=== PATIENT | female | born 1955 | race Two or more races ===

== ENCOUNTER 2017-10-09 10:41 | Observation (INO) | payer OTHER ==
[2017-10-09] MEDS ORDERED: NITROGLYCERIN (SL) 0.4 MG TAB SL ×2 (11:30→16:00)
[2017-10-09] MEDS: ASPIRIN 81 MG TAB PO (11:32)
[2017-10-09] MEDS: NITROGLYCERIN 2% 1 GM OINT PKT TD (11:33)
[2017-10-09 11:54] LABS: ADD MAN DIFF? NO
[2017-10-09 12:11] LABS: BASOPHIL # 0.1 10^3/ul (0.0-0.1); BASOPHILS % 0.5 % (0.0-2.0); EOSINOPHILS # 0.3 10^3/ul (0.0-0.5); EOSINOPHILS % 3.1 % (0.0-7.0); HEMATOCRIT 41.3 % (37.0-47.0); HEMOGLOBIN 13.2 g/dl (12.0-16.0); LYMPHOCYTES # 3.2 10^3/ul (0.8-2.9); MEAN CORPUSCULAR HEMOGLOBIN 28.2 pg (29.0-33.0); MEAN CORPUSCULAR VOLUME 88.2 fl (82.0-101.0); MEAN PLATELET VOLUME 10.5 fl (7.4-10.4); MONOCYTE # 0.5 10^3/ul (0.3-0.9); MONOCYTES % 4.9 % (0.0-11.0); NEUTROPHIL # 6.3 10^3/ul (1.6-7.5); NEUTROPHILS % 60.1 % (39.0-77.0); PLATELET COUNT 301 10^3/UL (140-415); RED BLOOD COUNT 4.68 10^6/ul (4.20-5.40); RED CELL DISTRIBUTION WIDTH 13.4 % (11.5-14.5)
[2017-10-09 12:11] LABS: WHITE BLOOD COUNT 10.4 10^3/ul (4.8-10.8)
[2017-10-09 12:21] LABS: ANION GAP 16 (8-16); BLOOD UREA NITROGEN 13 mg/dl (7-20); CALCIUM 9.6 mg/dl (8.4-10.2); CARBON DIOXIDE 32 mmol/L (21-31); CHLORIDE 99 mmol/L (97-110); CREATININE 0.78 mg/dl (0.44-1.00); GLUCOSE 151 mg/dl (70-220); POTASSIUM 3.8 mmol/L (3.5-5.1); SODIUM 143 mmol/L (135-144)
[2017-10-09 12:35] LABS: TROPONIN-I < 0.012 ng/ml (0.00-0.12)
[2017-10-09] MEDS ORDERED: ACETAMINOPHEN 325 MG TAB PO ×2 (14:30→16:00)
[2017-10-09] MEDS ORDERED: ONDANSETRON 4 MG INJ IV ×2 (14:30→16:00)
[2017-10-09] MEDS ORDERED: DOCUSATE SODIUM 100 MG CAP PO (16:00)
[2017-10-09] MEDS ORDERED: NACL 0.9% 3 ML SYG IV (16:00)
[2017-10-09] MEDS ORDERED: morphine 2 MG INJ IV (16:00)
[2017-10-09] MEDS ORDERED: DICYCLOMINE 10 MG CAP PO (16:00)
[2017-10-09] MEDS ORDERED: HYDROCODONE/APAP (5/325) TAB PO (16:00)
[2017-10-09] MEDS ORDERED: GLUCOSE GEL 15 GRAM TUBE BUCCAL (16:30)
[2017-10-09] MEDS ORDERED: GLUCAGON 1 MG INJ IM (16:30)
[2017-10-09] MEDS ORDERED: DEXTROSE 50% 50 ML SYRINGE IV ×2 (16:30)
[2017-10-09] MEDS ORDERED: GLUCOSE GEL 15 GRAM TUBE PO ×2 (16:30)
[2017-10-09] MEDS: D5W-0.45 NACL + KCL 20 MEQ 1,000 ML IV (16:34)
[2017-10-09] MEDS: INSULIN ASPART [NOVOLOG] 3 ML PEN SC ×2 (16:48→21:00)
[2017-10-09 18:02] LABS: CREATINE KINASE 52 IU/L (23-200)
[2017-10-09 18:15] LABS: CK INDEX 2.4; CK-MB 1.23 ng/ml (0.0-2.4); TROPONIN-I 0.053 ng/ml (0.00-0.12)
[2017-10-09] MEDS: ATORVASTATIN 20 MG TAB PO (21:31)
[2017-10-09] MEDS: INSULIN GLARGINE [LANtus] 3 ML PEN SC (21:33)
[2017-10-09 23:51] LABS: CREATINE KINASE 43 IU/L (23-200)
[2017-10-10 00:04] LABS: CK INDEX 2.3; CK-MB 1.01 ng/ml (0.0-2.4); TROPONIN-I 0.041 ng/ml (0.00-0.12)
[2017-10-10] MEDS: INSULIN ASPART [NOVOLOG] 3 ML PEN SC ×5 (01:00→17:00)
[2017-10-10] MEDS: ACCU-CHEK XX (01:51)
[2017-10-10] MEDS: PANTOPRAZOLE (EC) 40 MG TAB PO (05:48)
[2017-10-10] MEDS: D5W-0.45 NACL + KCL 20 MEQ 1,000 ML IV (05:49)
[2017-10-10 06:46] LABS: ADD MAN DIFF? NO
[2017-10-10 06:50] LABS: BASOPHIL # 0.1 10^3/ul (0.0-0.1); BASOPHILS % 0.5 % (0.0-2.0); EOSINOPHILS # 0.4 10^3/ul (0.0-0.5); EOSINOPHILS % 3.3 % (0.0-7.0); HEMATOCRIT 38.1 % (37.0-47.0); LYMPHOCYTES # 2.9 10^3/ul (0.8-2.9); MEAN CORPUSCULAR HEMOGLOBIN 28.1 pg (29.0-33.0); MEAN CORPUSCULAR HGB CONC 31.5 g/dl (32.0-37.0); MEAN CORPUSCULAR VOLUME 89.2 fl (82.0-101.0); MEAN PLATELET VOLUME 10.4 fl (7.4-10.4); MONOCYTE # 0.6 10^3/ul (0.3-0.9); MONOCYTES % 6.1 % (0.0-11.0); NEUTROPHIL # 6.5 10^3/ul (1.6-7.5); NEUTROPHILS % 61.7 % (39.0-77.0); PLATELET COUNT 270 10^3/UL (140-415); RED BLOOD COUNT 4.27 10^6/ul (4.20-5.40); RED CELL DISTRIBUTION WIDTH 13.4 % (11.5-14.5)
[2017-10-10 06:50] LABS: WHITE BLOOD COUNT 10.5 10^3/ul (4.8-10.8)
[2017-10-10 07:38] LABS: ANION GAP 14 (8-16); BLOOD UREA NITROGEN 14 mg/dl (7-20); CALCIUM 9.5 mg/dl (8.4-10.2); CARBON DIOXIDE 34 mmol/L (21-31); CHLORIDE 100 mmol/L (97-110); CHOL/HDL RATIO 5.1 RATIO; CHOLESTEROL 155 mg/dl (100-200); CREATININE 0.83 mg/dl (0.44-1.00); GLUCOSE 114 mg/dl (70-220); HDL CHOLESTEROL 30 mg/dl (35-98); LDL CHOLESTEROL,CALCULATED 72 mg/dl; MAGNESIUM 1.7 mg/dl (1.7-2.5); PHOSPHORUS 4.6 mg/dl (2.5-4.9); POTASSIUM 4.2 mmol/L (3.5-5.1); SODIUM 144 mmol/L (135-144); TRIGLYCERIDES 264 mg/dl (0-149)
[2017-10-10 07:47] LABS: T3 UPTAKE 29.2 % (23.5-40.5); T4 (THYROXINE) 7.2 ug/dl (5.5-11.0)
[2017-10-10 08:26] LABS: HEMOGLOBIN A1C 6.7 % (0-5.9)
[2017-10-10] MEDS ORDERED: NON-FORMULARY/PATIENT OWN MED (Losartan-Hydrochlorothiazide (Losartan-HCTZ) 1 TAB) PO (09:00)
[2017-10-10] MEDS: FLUTICASONE 0.05% 16 GM NAS SPRAY NASAL (11:25)
[2017-10-10] MEDS: LORATADINE 10 MG TAB PO (11:25)
[2017-10-10] MEDS: HYDROCHLOROTHIAZIDE 12.5 MG CAP PO (11:26)
[2017-10-10] MEDS: LOSARTAN 50 MG TAB PO (11:26)
[2017-10-10] MEDS: ENOXAPARIN 40 MG/0.4 ML SYG SC (11:30)
[2017-10-11] MEDS ORDERED: INFLUENZA VIRUS VACCINE 0.5 ML (DISPENSING) IM* (09:00)
[2017-10-11] MEDS ORDERED: ASPIRIN 81 MG TAB PO (09:00)
== END 2017-10-10 19:20 | disposition home or self-care (01) ==
LOC: E/R 10:41 → MS3 14:18
DX: R07.9 Chest pain, unspecified (principal); I10 Essential (primary) hypertension; E11.9 Type 2 diabetes mellitus without complications; Z79.84 Long term (current) use of oral hypoglycemic drugs; J45.909 Unspecified asthma, uncomplicated; E78.5 Hyperlipidemia, unspecified; Z79.82 Long term (current) use of aspirin; Z82.49 Family history of ischemic heart disease and other diseases of the circulatory system
CPT/HCPCS: 36415; 71045; 80048; 80061; 82550; 82553; 82962; 83036; 83735; 84100; 84436; 84479; 84484; 85025; 93005; 93306; 99285-25

== ENCOUNTER 2017-12-05 13:45 | Day surgery (SDC) | payer OTHER ==
[~2017-12-05 13:45] MED LIST: CEFAZOLIN 1 GM INJ; DEXAMETHASONE 4 MG/ML 1 ML INJ; METOCLOPRAMIDE 10 MG INJ; ONDANSETRON 4 MG INJ
[2017-12-05] MEDS ORDERED: METOCLOPRAMIDE 10 MG INJ IV (15:00)
[2017-12-05] MEDS ORDERED: SOD CHLORIDE 0.9% 1,000 ML IV (15:00)
[2017-12-05] MEDS ORDERED: IPRATROPIUM (NEB) 0.5 MG/2.5 ML AMP HHN ×3 (15:00→17:00)
[2017-12-05] MEDS ORDERED: FENTAnyl 50 MCG/ML VIAL IV ×2 (15:00)
[2017-12-05] MEDS ORDERED: LABETALOL HCL 20MG INJ IV (15:00)
[2017-12-05] MEDS ORDERED: HYDROmorphONE (0.2 MG/ML) 10ML SYG IV ×2 (15:00)
[2017-12-05] MEDS ORDERED: MEPERIDINE 25 MG INJ IV (15:00)
[2017-12-05] MEDS ORDERED: hydrALAzine 20 MG INJ IV (15:00)
[2017-12-05] MEDS ORDERED: DIPHENHYDRAMINE 50 MG INJ IV (15:00)
[2017-12-05] MEDS ORDERED: ONDANSETRON 4 MG INJ IV (15:00)
[2017-12-05] MEDS ORDERED: BACITRACIN/POLYMYXIN 28.35 GM OINT TOP (15:07)
[2017-12-05 15:12] LABS: ADD MAN DIFF? NO
[2017-12-05 15:14] LABS: WHITE BLOOD COUNT 10.3 10^3/ul (4.8-10.8)
[2017-12-05 15:14] LABS: BASOPHILS % 0.4 % (0.0-2.0); EOSINOPHILS # 0.4 10^3/ul (0.0-0.5); EOSINOPHILS % 3.6 % (0.0-7.0); HEMOGLOBIN 12.1 g/dl (12.0-16.0); LYMPHOCYTES # 3.3 10^3/ul (0.8-2.9); LYMPHOCYTES % 32.1 % (15.0-51.0); MEAN CORPUSCULAR HEMOGLOBIN 28.4 pg (29.0-33.0); MEAN CORPUSCULAR HGB CONC 31.8 g/dl (32.0-37.0); MEAN CORPUSCULAR VOLUME 89.2 fl (82.0-101.0); MEAN PLATELET VOLUME 10.3 fl (7.4-10.4); MONOCYTE # 0.7 10^3/ul (0.3-0.9); MONOCYTES % 6.4 % (0.0-11.0); NEUTROPHIL # 5.9 10^3/ul (1.6-7.5); NEUTROPHILS % 57.2 % (39.0-77.0); PLATELET COUNT 252 10^3/UL (140-415); RED BLOOD COUNT 4.26 10^6/ul (4.20-5.40); RED CELL DISTRIBUTION WIDTH 13.4 % (11.5-14.5)
[2017-12-05] MEDS ORDERED: PROPOFOL 20 ML (15:23)
[2017-12-05] MEDS ORDERED: FENTAnyl 50 MCG/ML VIAL (15:24)
[2017-12-05] MEDS ORDERED: SUCCINYLCHOLINE CHLORIDE 100 MG/5 ML SYG IV (15:24)
[2017-12-05] MEDS ORDERED: MIDAZOLAM 1 MG/ML 2 ML INJ ×2 (15:24→15:52)
[2017-12-05] MEDS ORDERED: ROCURONIUM 50 MG INJ (15:24)
[2017-12-05] MEDS ORDERED: LIDOCAINE 100 MG SYRINGE (15:26)
[2017-12-05] MEDS ORDERED: SUGAMMADEX SODIUM 200 MG/2 ML VIAL IV (15:26)
[2017-12-05 15:29] LABS: INR 0.99; PARTIAL THROMBOPLASTIN TIME 27.2 Sec (25.0-35.0); PROTIME 13.2 Sec (11.9-14.9)
[2017-12-05 15:41] LABS: ALANINE AMINOTRANSFERASE 30 IU/L (13-69); ALBUMIN 3.9 g/dl (3.3-4.9); ALBUMIN/GLOBULIN RATIO 1.11; ALKALINE PHOSPHATASE 69 IU/L (42-121); ANION GAP 17 (8-16); ASPARTATE AMINO TRANSFERASE 21 IU/L (15-46); CARBON DIOXIDE 33 mmol/L (21-31); CHLORIDE 102 mmol/L (97-110); GLUCOSE 97 mg/dl (70-220); TOTAL PROTEIN 7.4 g/dl (6.1-8.1)
[2017-12-05] MEDS: LIDOCAINE 1%/EPI 30 ML INJ (15:51)
[2017-12-05] MEDS: COCAINE 4% 4 ML TOP (15:51)
[2017-12-05] MEDS ORDERED: ALBUTEROL HFA 8 GM INHALER INH (16:00)
[2017-12-05 16:01] LABS: BLOOD UREA NITROGEN 12 mg/dl (7-20); CALCIUM 9.4 mg/dl (8.4-10.2); CREATININE 0.72 mg/dl (0.44-1.00); POTASSIUM 4.4 mmol/L (3.5-5.1); SODIUM 148 mmol/L (135-144)
[2017-12-05] MEDS ORDERED: OXYCODONE/ACETAMINOPHEN (5/325) TAB PO (16:30)
[2017-12-05] MEDS: ALBUTEROL/IPRATROPIUM (NEB) 3 ML AMP HHN (16:51)
[2017-12-05] MEDS ORDERED: LEVALBUTEROL (NEB) 1.25 MG/0.5 ML AMP HHN ×2 (17:00)
== END 2017-12-05 18:59 | disposition home or self-care (01) ==
LOC: SDS 13:45
DX: J34.2 Deviated nasal septum (principal); J34.3 Hypertrophy of nasal turbinates; I10 Essential (primary) hypertension; E11.9 Type 2 diabetes mellitus without complications; J45.909 Unspecified asthma, uncomplicated
CPT/HCPCS: 30140; 80053; 82962; 85025; 85610; 85730; 93005; 94664

== ENCOUNTER 2018-10-08 23:02 | Emergency (ER) | payer OTHER ==
[2018-10-08] MEDS: IPRATROPIUM (NEB) 0.5 MG/2.5 ML AMP NEB (23:37)
[2018-10-08] MEDS: LEVALBUTEROL (NEB) 1.25 MG/0.5 ML AMP INH (23:37)
[2018-10-09] MEDS: predniSONE 20 MG TAB PO (00:14)
== END 2018-10-09 01:10 | disposition home or self-care (01) ==
LOC: FTE 10-09 01:10
DX: J45.901 Unspecified asthma with (acute) exacerbation (principal); I10 Essential (primary) hypertension; E11.9 Type 2 diabetes mellitus without complications; Z79.82 Long term (current) use of aspirin; Z79.84 Long term (current) use of oral hypoglycemic drugs; Z87.891 Personal history of nicotine dependence
CPT/HCPCS: 71046; 93005; 94664; 99284-25